=== PATIENT | female | born 1975 | race Caucasian/White ===

== ENCOUNTER 2020-08-17 05:59 | Day surgery (SDC) | payer MEDICARE, MEDICAID ==
[2020-08-06 12:05] LABS: BASOPHILS # (AUTO) 0.1 X10'3 (0-0.2); BASOPHILS % (AUTO) 0.9 % (0-1); EOSINOPHILS # (AUTO) 0.3 X10'3 (0-0.9); EOSINOPHILS % (AUTO) 5.2 % (0-6); HEMATOCRIT 40.7 % (35.0-45.0); LYMPHOCYTES # (AUTO) 2.5 X10'3 (1.1-4.8); LYMPHOCYTES % (AUTO) 43.8 % (21-51); MEAN CORPUSCULAR HEMOGLOBIN 32.4 PG (27.0-31.0); MEAN CORPUSCULAR HGB CONC 34.3 g/dL (33.0-36.5); MEAN CORPUSCULAR VOLUME 94.5 FL (78-98); MEAN PLATELET VOLUME 8.1 FL (7.4-10.4); MONOCYTES # (AUTO) 0.6 X10'3 (0-0.9); MONOCYTES % (AUTO) 10.1 % (2-12); NEUTROPHILS # (AUTO) 2.3 X10'3 (1.8-7.7); PLATELET COUNT 158 X10'3 (140-440); RED BLOOD COUNT 4.31 X10'6 (4.20-5.60); RED CELL DISTRIBUTION WIDTH 13.1 % (11.5-14.5); WHITE BLOOD COUNT 5.7 X10'3 (4.5-11.0)
[2020-08-06 12:13] LABS: ALBUMIN 3.8 G/DL (3.4-5.0); ANION GAP 5 (8-16); BLOOD UREA NITROGEN 21 MG/DL (7-18); BUN/CREATININE RATIO 25.9 (6.6-38.0); CALCIUM 9.3 MG/DL (8.5-10.1); CHLORIDE 107 MMOL/L (99-107); CREATININE 0.81 MG/DL (0.40-0.90); GLUCOSE 96 MG/DL (70-104); POTASSIUM 5.2 MMOL/L (3.5-5.1); SODIUM 141 MMOL/L (135-145); TOTAL CARBON DIOXIDE 29.1 MMOL/L (24-32); eGFR 76 ML/MIN
[2020-08-06 12:17] LABS: PARTIAL THROMBOPLASTIN TIME 27 SECONDS (22-32)
[~2020-08-17] VITALS: Ht 174 cm; Wt 138.3 kg
[2020-08-17] VITALS (10 sets, daily range): BP systolic 134–151; BP diastolic 79–113
[2020-08-17] MEDS ORDERED: LIDOcaine/PRILOcaine 5gm cream TP ONE (06:20)
[2020-08-17] MEDS ORDERED: LORazepam 0.5 MG tablet PO PRN (06:20)
[2020-08-17] MEDS ORDERED: diphenhydrAMINE 25mg capsule PO PRN (06:20)
[2020-08-17] MEDS ORDERED: normal saline 1,000 ML IV SCH (06:20)
[2020-08-17] MEDS ORDERED: NITR0.4T48 SL (06:35)
[2020-08-17] MEDS ORDERED: CYCL-1 PO (06:35)
[2020-08-17] MEDS ORDERED: DIVA-52 PO (06:35)
[2020-08-17] MEDS ORDERED: IBUP-1986 PO (06:35)
[2020-08-17] MEDS ORDERED: SPIR25TA5 PO (06:35)
[2020-08-17] MEDS ORDERED: GABA800T11 PO (06:35)
[2020-08-17] MEDS ORDERED: METO25TA6 PO (06:35)
[2020-08-17] MEDS ORDERED: ATOR40TA72 PO (06:35)
[2020-08-17] MEDS ORDERED: FAMO40TA58 PO (06:35)
[2020-08-17] MEDS ORDERED: ALPR1TAB7 PO (06:35)
[2020-08-17] MEDS ORDERED: LOSA50TA64 PO (06:35)
[2020-08-17] MEDS ORDERED: PRIM50TA5 PO (06:37)
[2020-08-17] MEDS ORDERED: verapamil 2.5 mg/ml inj IV ONE (08:46)
[2020-08-17] MEDS ORDERED: nitroGLYCERIN-Tridil 50MG/D5W 250 ML IV ONE (08:46)
[2020-08-17] MEDS ORDERED: fentaNYL/PF 50MCG/1 ML 2ML syringe ONE (08:47)
[2020-08-17] MEDS ORDERED: iohexol 350MG/ML 100ml bottle IV ONE (08:47)
[2020-08-17] MEDS ORDERED: heparin 1,000unit/ml 10ml vial 10 ML ONE (08:47)
[2020-08-17] MEDS ORDERED: LIDOcaine 1% (10mg/ml)w/preservative injection 20ml MDV ONE (08:47)
[2020-08-17] MEDS ORDERED: midazolam 1 mg/ML 2ml injection ONE ×3 (08:47→09:19)
[2020-08-17] MEDS ORDERED: ondansetron/PF 4mg/2ml inj IV PRN (10:40)
[2020-08-17] MEDS ORDERED: HYDROcodone/acetaminophen 10/325mg tab PO PRN (10:40)
[2020-08-17] MEDS ORDERED: OXAZEpam 15mg capsule PO PRN (10:40)
[2020-08-17] MEDS ORDERED: proCHLORperazine 10 MG/2 ml inj IV PRN (10:40)
[2020-08-17] MEDS ORDERED: nitroGLYCERIN 0.4mg SUBLingual tab SL PRN (10:40)
[2020-08-17] MEDS ORDERED: HYDROcodone/acetaminophen 5mg/325mg tablet PO PRN (10:40)
--- NOTE | 2020-08-17 10:45 | NUR ---
Pt complained of severe anxiety and wrist pain. Meds given as ordered. Addendum: 08/17/20 at 1315 by Sherman Hernandez RN Amended: Links added.
--- NOTE | 2020-08-17 12:30 | NUR ---
Pt complained of nausea. Meds given as ordered. Addendum: 08/17/20 at 1315 by Sherman Hernandez RN Amended: Links added.
--- NOTE | 2020-08-17 12:30 | NUR ---
Pt care transferred to Jodie ESPINOZA. Report given with chance to ask questions. Addendum: 08/17/20 at 1318 by Sherman Hernandez RN Amended: Links added.
== END 2020-08-17 13:00 | disposition home or self-care (01) ==
LOC: SSTAY O 05:59
PROVIDERS: ATTEND Internal Medicine Interventional Cardiology
DX: R94.39 Abnormal result of other cardiovascular function study (principal); I10 Essential (primary) hypertension; I42.9 Cardiomyopathy, unspecified; E78.5 Hyperlipidemia, unspecified; Z79.01 Long term (current) use of anticoagulants; Z79.899 Other long term (current) drug therapy; Z88.8 Allergy status to other drugs, medicaments and biological substances
CPT/HCPCS: 36415; 80048; 85025; 85610; 85730; 93005; 93458; 99152; C1769; C1894; J1644; J2001; J2250; J2405; J3010; J7030; Q0163; Q9967; A4620; A5120; J3490